=== PATIENT | female | born 1970 | race Two or more races ===

== ENCOUNTER 2020-08-17 06:00 | Day surgery (SDC) | payer OTHER ==
[~2020-08-17 06:00] MED LIST: ADVIL200 M1; AMOXICILLIN500 MG; MEDROLPACK PO
== END 2020-08-17 11:25 | disposition home or self-care (01) ==
LOC: AMB-ENDOS 06:00
PROVIDERS: ATTEND Surgery
DX: K62.89 Other specified diseases of anus and rectum (principal); Z20.828 Contact with and (suspected) exposure to other viral communicable diseases